=== PATIENT | male | born 1960 | race African-American/Black ===

== ENCOUNTER 2017-01-27 18:32 | Emergency (ER) | payer BC, MEDICARE ==
[~2017-01-27] VITALS: Ht 180.3 cm; Wt 127.0 kg
[~2017-01-27 18:32] MED LIST: GLUCTAB; HYDR-3580 PO; METO50TA PO; PERC7.5T13 PO
[2017-01-27 18:33] VITALS: BP 132/74; PULSE 79; RESP 18; TEMP 98.5; O2SAT 94
--- NOTE | 2017-01-27 18:40 | PD ---
Physical Exam Time Seen by Provider: 18:37 Narrative 56yo M c/o Left scalp pain after scraping and hitting his head while getting in his truck today. Reports abrasion to scalp. Denies LOC. denies vomiting. Denies focal deficits or weakness. Patient seen in triage. VS reviewed. Awaiting bed placement. Data Data Last Documented VS Vital Signs Date Time Temp Pulse Resp B/P Pulse Ox O2 Delivery O2 Flow Rate FiO2 01/27/17 18:33 98.5 79 18 132/74 94 Room Air [facility] Supervised Visit with PETR: Marina Everett January 27, 2017 18:40
--- NOTE | 2017-01-27 18:50 | PD ---
HPI . left side head abrasion and skin tag Chief Complaint: Head Injury Time Seen by Provider: 18:46 Travel History International Travel<30 days: No Contact w/Intl Traveler<30days: No Traveled to known affect area: No History of Present Illness HPI 56-year-old male here with complaints of a left sided scalp abrasion. He tells me that he had a lump on his head that he thinks is ready to be taken off. Upon further discussion patient has a skin tag on the left parietal side of his scalp that has been there for several years. He has not done anything about it , but accidentally hit it today. It is still hanging on and is not bleeding. He was hoping that I could remove it here in the emergency department. He denies any pain or other problems. He denies any loss of consciousness. He denies any headache. He has no other complaints. PFSH Past Medical History Diabetes: Yes Hypertension: Yes Social History Alcohol Use: Yes (5 BEERS PER MONTH) Tobacco Use: No Substance Use: No Allergies-Medications (Allergen,Severity, Reaction): Coded Allergies: No Known Allergies (Verified , 02/20/12) Reported Meds & Prescriptions Reported Meds & Active Scripts Active Percocet 7.5/325 (Oxycodone/Acetaminophen) Tab 1 Tab PO Q4HPRN FOR PAIN Reported Lortab 7.5/325 Tab (Hydrocodone-Acetaminophen) 7.5 Mg/325 Mg Tab 1 Tab PO Q4HPRN Metoprolol Tartrate 50 Mg Tab 50 Mg PO BID Glucophage (Metformin HCl) 500 Mg Tab 0 UNKNOWN DOSE Review of Systems General / Constitutional: No: Fever Eyes: No: Visual changes HENT: No: Headaches Cardiovascular: No: Chest Pain or Discomfort Respiratory: No: Shortness of Breath Gastrointestinal: No: Abdominal Pain Genitourinary: No: Dysuria Musculoskeletal: No: Pain Skin: Positive Other (scalp abrasion/ skin tag), No Rash Neurologic: No: Weakness Psychiatric: No: Depression Endocrine: No: Polydipsia Hematologic/Lymphatic: No: Easy Bruising Physical Exam Narrative GENERAL: AAO x 3, no acute distress, Well-nourished, well-developed patient. SKIN: Warm and dry. No visible rashes or bruising. Left side of parietal scalp with a 0.5 cm skin tag hanging on, it has some irregular borders and slight color variation where one small area is darker than the rest. There is no bleeding. There is also a 0.3 cm abrasion. No evidence of surrounding cellulitis, erythema or edema. There is no bleeding to this area HEAD: Normocephalic and atraumatic. EYES: No scleral icterus. No injection or drainage. EOM intact, PERRLA ENT: No nasal drainage noted. Mucous membranes pink. Airway patent. NECK: Supple, trachea midline. No JVD. CARDIOVASCULAR: Regular rate and rhythm without murmurs, gallops, or rubs. RESPIRATORY: Breath sounds equal bilaterally. No accessory muscle use. No rhonchi or rales. GASTROINTESTINAL: Visual inspection is normal EXTREMITIES: No cyanosis or edema. BACK: Nontender without obvious deformity. No CVA tenderness. NEURO: CN II through XII intact. PSYCH: AAO x 3, normal affect. Data Data Last Documented VS Vital Signs Date Time Temp Pulse Resp B/P Pulse Ox O2 Delivery O2 Flow Rate FiO2 01/27/17 18:33 98.5 79 18 132/74 94 Room Air MDM Medical Decision Making Medical Screen Exam Complete: Yes Emergency Medical Condition: Yes Medical Record Reviewed: Yes Differential Diagnosis Scalp abrasion, skin tag, skin cancer Narrative Course This is a 56-year-old male here with a an abrasion to scalp. Coincidentally he has a skin tag in the same area and was hoping that I could remove it here in the emergency department. The skin tag is still fixated to the scalp and will need to be surgically excised by his primary care provider. I do recommend a biopsy as the skin tag does have some irregular borders and a little bit of color variation. I discussed with patient. He will make an appointment with his primary care provider. No CT brain per [place] rules Patient verbalized understanding of instructions, questions were answered, and thanked me for their care. I advised them if their condition worsens, please return to the nearest emergency room for further care. Diagnosis Primary Impression: Scalp abrasion Qualified Code: S00.01XA - Scalp abrasion, initial encounter Additional Impression: Skin tag Patient Instructions: General Instructions Additional Instructions: Please return to emergency department if your symptoms return or worsen. Follow up with your primary care provider. Take medications as prescribed. Wash your hair normally. As we discussed, follow up with her primary care provider so they could perform a biopsy on the skin tag. Med/Other Pt SpecificInfo: Prescription(s) given Disposition: 01 DISCHARGE HOME Condition: Stable Giovanna Rodríguez January 27, 2017 18:50
== END 2017-01-27 19:10 | disposition home or self-care (01) ==
LOC: NEPK 18:32
DX: S00.01XA Abrasion of scalp, initial encounter (principal); L91.8 Other hypertrophic disorders of the skin; E11.9 Type 2 diabetes mellitus without complications; I10 Essential (primary) hypertension; W22.8XXA Striking against or struck by other objects, initial encounter
CPT/HCPCS: 99281